=== PATIENT | female | born 1985 | race Caucasian/White ===

== ENCOUNTER 2020-03-24 12:44 | Emergency (ER) | payer OTHER ==
[2020-03-24 12:59] VITALS: BP 133/83
--- NOTE | 2020-03-24 14:19 | ER Document Report ---
HPI - HPI Patient complains to provider of: dog bite Time Seen by Provider: 03/24/20 14:11 Pain Level: 2 Context: 34-year-old female presents to the emergency room with a dog bite to her nose that happened at work earlier today. States dog is up-to-date with vaccines. Patient states her tetanus is up-to-date. States the physician where she works cleanse the area I was able to lay the skin back over. Bleeding is controlled. No other injuries. Took ibuprofen prior to arrival with relief. Denies any chance of . Associated Symptoms: None Exacerbated by: Movement Relieved by: Remaining still, Other - Ibuprofen Similar symptoms previously: No Recently seen / treated by doctor: No - ROS Systems Reviewed and Negative: Yes All other systems reviewed and negative - CONSTITUTIONAL Constitutional: DENIES: Fever, Chills - EENT Notes: Laceration to bridge of nose - NEURO Neurology: DENIES: Headache, Weakness - RESPIRATORY Respiratory: DENIES: Trouble Breathing - REPRODUCTIVE Reproductive: DENIES: : - DERM Skin Color: Erythema Skin Problems: Laceration Past Medical History - General Information source: Patient - Social History Smoking Status: Current Every Day Smoker Frequency of alcohol use: Occasional Drug Abuse: None Family History: Reviewed & Not Pertinent Patient has homicidal ideation: No Vertical Provider Document - CONSTITUTIONAL Agree With Documented VS: Yes Exam Limitations: No Limitations General Appearance: Mild Distress - INFECTION CONTROL TRAVEL OUTSIDE OF THE [place] IN LAST 30 DAYS: No - HEENT HEENT: Normocephalic. negative: Dental Injury Notes: There is a small 1/4 cm flap laceration noted to the left side of the patient's nose. Bleeding is controlled. - NECK Neck: Normal Inspection, Supple, Thyroid Normal - RESPIRATORY Respiratory: Breath Sounds Normal, No Respiratory Distress, Chest Non-Tender - CARDIOVASCULAR Cardiovascular: Regular Rate, Regular Rhythm, No Murmur - BACK Back: Normal Inspection - NEURO Level of Consciousness: Awake, Alert, Appropriate Motor/Sensory: No Motor Deficit, No Sensory Deficit - DERM Integumentary: Warm, Dry, Laceration - 1/4 cm flap laceration noted to the left side of the nose. Leading is controlled. Course - Re-evaluation Re-evalutation: 03/24/20 14:16 Patient was counseled on proper wound care. Augmentin as prescribed. Tylenol and or Motrin as needed for pain. Outpatient follow-up with [employer] through her employer as needed. Patient was given strict return to the emergency room guidelines. Return for any new or worsening symptoms. All questions were answered. Patient verbalized understanding and agrees with plan of care. - Vital Signs Vital signs: Temp Pulse Resp BP Pulse Ox 98.2 F 62 16 133/83 H 99 03/24/20 12:57 03/24/20 12:57 03/24/20 12:57 03/24/20 12:57 03/24/20 12:57 - Laboratory Results Critical Laboratory Results Reviewed: No Critical Results - Radiology Results Critical Radiology Results Reviewed: No Critical Results Discharge - Discharge Clinical Impression: Dog bite of face Qualifiers: Encounter type: initial encounter Qualified Code(s): S01.85XA - Open bite of other part of head, initial encounter Condition: Stable Disposition: HOME, SELF-CARE Instructions: Animal Bites ([facility]) Additional Instructions: Please monitor very closely for any signs of infection from your dog bite including spreading redness from the area, pus from the wound, or worsening pain. Clean the area twice daily with soap and water and then apply topical antibiotic ointment. Please take all the antibiotics that you were prescribed until they are gone. Follow-up with your employer for referral to Work[employer] as needed. Prescriptions: Amoxicillin/Potassium Clav [Augmentin [id number] Tablet] 1 tab PO BID 10 Days #20 tablet Forms: Return to Work
== END 2020-03-24 14:20 | disposition home or self-care (01) ==
LOC: ER 12:44
DX: S01.25XA Open bite of nose, initial encounter (principal); W54.0XXA Bitten by dog, initial encounter; F17.200 Nicotine dependence, unspecified, uncomplicated
CPT/HCPCS: 99283